=== PATIENT | male | born 1970 | race Caucasian/White ===

== ENCOUNTER 2018-09-23 05:01 | Emergency (ER) | payer OTHER ==
[~2018-09-23] VITALS: Ht 165.1 cm; Wt 86.2 kg
[2018-09-23] MEDS ORDERED: LIPITOR10 MG PO (05:18)
[2018-09-23] MEDS ORDERED: NORCO 5-325 TA1 EAC1 PO (06:11)
[2018-09-23 06:30] VITALS: BP 129/80
== END 2018-09-23 06:30 | disposition home or self-care (01) ==
LOC: M.ERS 05:01
DX: S86.812A Strain of other muscle(s) and tendon(s) at lower leg level, left leg, initial encounter (principal); E78.00 Pure hypercholesterolemia, unspecified; Z79.899 Other long term (current) drug therapy; W50.1XXA Accidental kick by another person, initial encounter; Y93.75 Activity, martial arts; Y92.89 Other specified places as the place of occurrence of the external cause; Y99.8 Other external cause status

== ENCOUNTER 2020-11-26 13:37 | Emergency (ER) | payer OTHER ==
[~2020-11-26] VITALS: Ht 162.6 cm; Wt 81.7 kg
[~2020-11-26 13:37] MED LIST: LIPITOR10 MG PO; NORCO 5-325 TA1 EAC1 PO
[2020-11-26] MEDS ORDERED: METFORMIN HCL500 M3 PO (13:46)
[2020-11-26 14:06] VITALS: BP 151/92
== END 2020-11-26 14:07 | disposition home or self-care (01) ==
LOC: M.ERS 13:37
DX: T16.2XXA Foreign body in left ear, initial encounter (principal); E78.00 Pure hypercholesterolemia, unspecified; Z79.899 Other long term (current) drug therapy; W22.8XXA Striking against or struck by other objects, initial encounter; Y93.89 Activity, other specified; Y92.89 Other specified places as the place of occurrence of the external cause; Y99.8 Other external cause status